=== PATIENT | female | born 1975 | race Caucasian/White ===

== ENCOUNTER → 2024-02-01 06:27 | Day surgery (SDC) | payer OTHER, SELFPAY | LOC: GI 06:27 | PROVIDERS: ATTENDING PHYSICIAN Internal Medicine Gastroenterology; FAMILY PHYSICIAN Family Medicine | DX: Z12.11 Encounter for screening for malignant neoplasm of colon (principal); K64.8 Other hemorrhoids; R12 Heartburn; R11.0 Nausea; K44.9 Diaphragmatic hernia without obstruction or gangrene; K62.1 Rectal polyp; K31.7 Polyp of stomach and duodenum | CPT/HCPCS: 45385; 43239; 88305 ==

== ENCOUNTER 2024-02-14 10:27 | Emergency (ER) | payer OTHER, SELFPAY ==
[2024-02-14 10:33] VITALS: BP 132/79
--- NOTE | 2024-02-14 11:40 | ED.GENMED ---
History of Present Illness
<Luciana Rojas PA-C - Last Filed: 02/14/24 17:59>
General
Chief Complaint: Abdominal Pain
Source: patient and records
Exam Limitations: none
Time Seen by Provider: 02/14/24 11:32
Nursing documentation reviewed up to this point in time: agreed with
Travel History
Have you had any contact with someone who has COVID-19?: No
Do you have any symptoms of coronavirus? Fever > 100 degrees, chills, cough, shortness of breath, sore throat, loss of taste or smell, muscle aches, or headache?: No
History of Present Illness
History of Present Illness:
48 y/o female with PMH of ADHD, anxiety, presenting emergency department today with diffuse abdominal pain for the past 3 days. Patient states that she feels the pain all over her abdomen but is most prominent in the pelvis. Patient had associated
hematuria which she noticed this morning. Patient states that when she does the bathroom, this morning, she would occasionally notice clots of blood and should use the bathroom. Patient denies dysuria, chest pain, shortness of breath. She does
note some flank pain associated with this. She states that her bowel movements have been regular. Her last menstrual period was January 27. Patient states her periods are normal for her. Patient has a past surgical history of D&C and ,
has no other abdominal surgical history. Patient also notes that her appetite has been decreased past few days, however she has been able to tolerate oral intake and notes some nausea but no vomiting.
Past History
<Luciana Rojas PA-C - Last Filed: 02/14/24 17:59>
Past History
ED Past Medical History: None and Other (Frequent Sinus infections, ADHD, anxiety)
ED Past Surgical History: Gynecological
Social History
Tobacco: Non-smoker
Alcohol: Other (Medical marijuana)
Personal:
Living: with family
Family History
Family History: Other (There is nearsightedness in the family)
Review of Systems
<Luciana Rojas PA-C - Last Filed: 02/14/24 17:59>
Review of Systems
All Other Systems: ROS reviewed and negative except as documented in HPI and ROS
Phy Exam
<Luciana Rojas PA-C - Last Filed: 02/14/24 17:59>
Physical Exam
Physical Exam:
Vitals: Vital signs are stable
General: Patient is well-appearing, no acute distress
Skin: Warm and dry, no rashes or lesions
Head: Normocephalic, atraumatic
Eyes: Scleral nonicteric
Cardiac: Regular rate
Pulm: Normal respiratory effort
Abdomen: Diffuse abdominal tenderness to palpation, guarding present. Adnexal tenderness present, no palpable masses. Normoactive bowel sounds.
Genitourinary: No lesions or masses seen on external genitalia. On speculum examination, vaginal mucosa pink and moist, no lesions, no active bleeding, small collections of white discharge seen.
Neuro: AAOx3.CN II-XII intact. No focal neurologic deficits.
Course
<Luciana Rojas PA-C - Last Filed: 02/14/24 17:59>
Orders/Labs/Results
Orders:
Orders
02/14/24 11:55
IV Insert/Care/Rem.- Treatment PRN
02/14/24 12:04
Test Result ONCE
02/14/24 12:14
, Urine Qualitative Screen [HCG, Urine Qualitative Screen] Urgent
Date Specimen was Collected: 02/14/24
Time Specimen was Collected: 12:14
Urinalysis Reflex To Culture Urgent
Date Specimen was Collected: 02/14/24
Time Specimen was Collected: 11:40
Urine Microscopic Reflex Cult Urgent
Urine Culture Urgent
JAVON Source: U
Specimen Description:
Obtained by: Random
Date Specimen was Collected: 02/14/24
Time Specimen was Collected: 11:40
02/14/24 12:24
Complete Blood Count/With Diff Urgent
Comprehensive Metabolic Panel Urgent
Lipase Urgent
02/14/24 12:37
Add On- LAB Urgent
Tests Added?: urine
02/14/24 12:56
CT Abd/pelvis Wo Iv Cont Urgent
Comment:
Reason For Exam: pelvic pain, flank pain, hematuria
Abnormal Lab Results
02/14/24 02/14/24
12:14 12:24
Hct 35.6 L %
(37.0-47.0)
Absolute Neuts (auto) 7.1 H 10^3/uL
(1.4-6.5)
Lymphocytes % 18.9 L %
(20.5-51.1)
Ur Occult Blood Reflex 4+ A
(Negative)
Leukocyte Esterase Rfl 1+ A
(Negative)
02/14/24 12:24
02/14/24 12:24
Vital Signs
Initial and Last Documented VS:
Initial Vital Signs
Temp Pulse Resp BP Pulse Ox
98.6 F 89 18 132/79 99
02/14/24 10:33 02/14/24 10:33 02/14/24 10:33 02/14/24 10:33 02/14/24 10:33
Last Documented Vital Signs
Temp Pulse Resp BP Pulse Ox
98.6 F 66 16 109/70 97
02/14/24 10:33 02/14/24 13:55 02/14/24 13:55 02/14/24 13:55 02/14/24 13:55
Angelalt;Bennett Stark, DO - Last Filed: 02/14/24 12:59>
Orders/Labs/Results
Orders:
Orders
02/14/24 11:55
IV Insert/Care/Rem.- Treatment PRN
02/14/24 12:04
Test Result ONCE
02/14/24 12:14
, Urine Qualitative Screen [HCG, Urine Qualitative Screen] Urgent
Date Specimen was Collected: 02/14/24
Time Specimen was Collected: 12:14
Urinalysis Reflex To Culture Urgent
Date Specimen was Collected: 02/14/24
Time Specimen was Collected: 11:40
Urine Microscopic Reflex Cult Urgent
Urine Culture Urgent
JAVON Source: U
Specimen Description:
Obtained by: Random
Date Specimen was Collected: 02/14/24
Time Specimen was Collected: 11:40
02/14/24 12:24
Complete Blood Count/With Diff Urgent
Comprehensive Metabolic Panel Urgent
Lipase Urgent
02/14/24 12:37
Add On- LAB Urgent
Tests Added?: urine
02/14/24 12:56
CT Abd/pelvis Wo Iv Cont Urgent
Comment:
Reason For Exam: pelvic pain, flank pain, hematuria
Abnormal Lab Results
02/14/24 02/14/24
12:14 12:24
Hct 35.6 L %
(37.0-47.0)
Absolute Neuts (auto) 7.1 H 10^3/uL
(1.4-6.5)
Lymphocytes % 18.9 L %
(20.5-51.1)
Ur Occult Blood Reflex 4+ A
(Negative)
Leukocyte Esterase Rfl 1+ A
(Negative)
02/14/24 12:24
02/14/24 12:24
Vital Signs
Initial and Last Documented VS:
Initial Vital Signs
Temp Pulse Resp BP Pulse Ox
98.6 F 89 18 132/79 99
02/14/24 10:33 02/14/24 10:33 02/14/24 10:33 02/14/24 10:33 02/14/24 10:33
Last Documented Vital Signs
Temp Pulse Resp BP Pulse Ox
98.6 F 66 16 109/70 97
02/14/24 10:33 02/14/24 13:55 02/14/24 13:55 02/14/24 13:55 02/14/24 13:55
<Luciana Rojas PA-C - Last Filed: 02/14/24 17:59>
MDM/Problems Addressed
Differential Diagnosis Includes:
Differentials include nephrolithiasis, acute cystitis, pyelonephritis, abnormal uterine bleeding, menstruation, , ectopic , bladder cancer
MDM/Problems Addressed:
abdominal pain
hematuria
Chronic conditions affecting care: Psychiatric illness
<Luciana Rojas PA-C - Last Filed: 02/14/24 17:59>
*Pulse Oximetry
Patient hypoxic: no
*Critical Care Note
Total Time (30-74mins, 75-104mins- exclusive of procedures): Not Applicable
Data Reviewed
Review of Other/Old Records Reveals: Records (reviewed ER physician documentation from 08/03/2023) and Discharge Summary (reviewed discharge summary from 02/07/15)
Source: patient and records
<BRENNA Estes Last Filed: 02/14/24 17:59>
Patient Management
Escalation/DeEscalation of care consider admission/obs:
48 y/o female with PMH of ADHD, anxiety, presenting emergency department today with diffuse abdominal pain for the past 3 days. Patient states that she feels the pain all over her abdomen but is most prominent in the pelvis. On physical exam, she
had diffuse abdominal tenderness however she is well-appearing. Speculum exam was performed which did not reveal any vaginal lesions or active bleeding. CT scan of the abdomen revealed lobulated contour of the uterus suggestive of uterine
fibroids. Patient was updated on these findings, advised follow-up with her DIRECTOR OF CULTURE. Patient states that she is currently process of finding a new one, I did give her referral to set up an appointment. Patient stable for discharge. Patient in
agreement with plan.
ED Attending Note
<Luciana Rojas PA-C - Last Filed: 02/14/24 17:59>
-
Portions of this chart may have been created with voice recognition software.� Occasional wrong word or��sound alike� substitutions may have occurred due to the inherent limitations of voice recognition software.
<Bennett Stark DO - Last Filed: 02/14/24 12:59>
ED Attending Note
Patient seen and examined by attending physician: Yes
I performed the substantive portion of visit, reviewed & personally made and approve the management plan that is documented in note by myself or KRYSTA.: Yes
ED Attending Note:
I have reviewed Luciana's note with the following comments.
48-year-old female presents complaining of lower abdominal pain, hematuria. Symptoms began approximately 3 days ago. When she urinated earlier today she noted clots in her urine. She feels confident this bleeding was not vaginal in nature. Last
menstrual period was January 27. Her menstrual periods have been normal. No fever or chills.
General: Awake, Alert, Oriented X3. No acute distress.
Vitals: unremarkable
Head: Atraumatic
Eyes: Pupils equal, EOMI
Abd: Soft, tender palpation bilateral lower abdominal quadrants, No pulsatile mass
Back: Mild right CVA tenderness to percussion
Neuro: Nonfocal
Skin: Warm, dry, no rash
Extremities: pulses equal b/l, no edema
Given hematuria most likely cause for patient's symptoms is kidney stone or other kidney lesion. UTI with hemorrhagic cystitis also possibility. Will obtain a CT without contrast as the initial study as well as urinalysis and some lab studies.
Discharge Plan
Departure
Patient Disposition: Home (Routine Discharge)
Date of Disposition: 02/14/24
Time of Disposition: 14:23
Patient with high blood pressure during this ER visit?: Yes
Condition: Good
Discharge Problem:
Abdominal pain
Instructions: Abdominal Pain, BLOOD PRESSURE
Prescriptions:
No Action
Theragen Tablet
1 tab PO HS
alprazolam 0.5 mg Tablet
0.25 mg PO DAILY
Patient Comments:
08/03/23 filled on 07/06/23 #15
ascorbic acid (vitamin C) [Vitamin C] 250 mg Tablet
250 mg PO HS
ibuprofen [Advil] 200 mg Tablet
200 mg PO Q6HPRN PRN (Reason: mild pain)
fluticasone propionate [Flonase] 50 mcg/actuation [place],Suspension
2 spray INTRANASAL DAILYPRN PRN (Reason: nasal allergies)
bupropion HCl 200 mg Tablet Sustained-Release 12 Hr
400 mg PO DAILY
escitalopram oxalate 5 mg Tablet
5 mg PO DAILY
calcium carbonate-vitamin D3 [Calcium 500 + D] 500 mg-10 mcg (400 unit) Tablet
1 tab PO HS
guaifenesin [Mucinex] 600 mg Tablet Extended Release 12hr
600 mg PO [id number] PRN (Reason: congestion)
Medical Marijuana
2 - 3 puff inhalation DAILYPRN PRN (Reason: anxiety)
Referrals:
Tracey Gomez DO [Family Provider] -
Prema Kurtz DO [Active] - Call in 1-3 days for appt
Activity Restrictions/Additional Instructions:
Please schedule a follow up appointment with your OBGYN.
Please follow up with your primary.
PLEASE RETURN TO THE EMERGENCY DEPARTMENT SHOULD YOU EXPERIENCE AN ACUTE WORSENING OF YOUR SYMPTOMS, FEVERS OR CHILLS, CHEST PAIN, SHORTNESS OF BREATH, PERSISTENT BLEEDING, OR OTHER CONCERNING SIGNS OR SYMPTOMS.
Interventions
Interventions:
*General Assessment Last Done: 02/14/24 11:59
ED- Fall Risk Assessment Last Done: 02/14/24 11:59
*ED COVID-19 Vaccine History Last Done: 02/14/24 10:33
*Nursing Disposition Last Done: 02/14/24 14:50
[facility]izsnft[facility] Assessment Last Done: 02/14/24 11:58
Discharge Date and Time
Discharge Date/Time: 02/14/24 14:53
Print Language: TURKISH
[2024-02-14 12:25] LABS: Urine Albumin Negative (Neg - Trace); Urine Bilirubin Negative (Negative); Urine Character Clear (Clear); Urine Color Straw; Urine Glucose Negative (Negative); Urine Ketone Negative (Negative); Urine Leukocyte 1+ (Negative); Urine Nitrite Negative (Negative); Urine Occult Blood 4+ (Negative); Urine Urobilinogen Negative (Neg - 1+)
[2024-02-14 12:45] LABS: % Basophils 0.2 % (0-2); % Eosinophils 0.7 % (0-6); % Immature Granulocytes 0.4 % (0-0.5); % Lymphocytes 18.9 % (20.5-51.1); % Monocytes 5.1 % (1.7-9.3); % Neutrophils 74.7 % (42.2-75.2); Absolute Eosinophils 0.1 10^3/uL (0-0.7); Absolute Lymphocytes 1.8 10^3/uL (1.2-3.4); Absolute Monocytes 0.5 10^3/uL (0.1-0.6); Absolute Neutrophils 7.1 10^3/uL (1.4-6.5); Hematocrit 35.6 % (37.0-47.0); Hemoglobin 12.5 g/dL (12.0-16.0); Mean Corp Hgb Conc. 35.1 g/dL (33.0-37.0); Mean Corpuscular Hgb 29.1 pg (27.0-31.0); Mean Platelet Volume 9.2 fL (7.4-10.4); Nucleated Red Blood Cells % 0 %; Platelet Count 212 10^3/uL (130-400); Red Blood Cell Count 4.29 10^6/uL (4.20-5.40); Red Cell Dist. Width 13.6 % (11.5-14.5); White Blood Cell Count 9.6 10^3/uL (4.8-10.8)
[2024-02-14 13:06] LABS: ALT (SGPT) 15 U/L (0-35); AST (SGOT) 24 U/L (14-36); Albumin 4.3 g/dl (3.5-5.0); Alkaline Phosphatase 50 U/L (38-126); Blood Urea Nitrogen 12 mg/dl (7-17); Calcium 9.3 mg/dl (8.4-10.2); Carbon Dioxide 26 mmol/L (22-30); Chloride 105 mmol/L (98-107); Glucose 90 mg/dl (70-99); Lipase 91 U/L (23-300); Potassium 3.9 mmol/L (3.5-5.1); Sodium 135 mmol/L (135-145); Total Bilirubin 0.5 mg/dl (0.2-1.3); Total Protein 6.8 g/dl (6.3-8.2); eGFR > 60.00
[2024-02-14 13:30] LABS: HCG, Urine Qualitative Screen Negative
[2024-02-14 13:41] LABS: Urine Red Blood Cell 0-2 /HPF (0-2)
[2024-02-14 13:53] VITALS: BMI 21.8
[2024-02-14 13:55] VITALS: BP 109/70
== END 2024-02-14 14:53 | disposition home or self-care (01) ==
LOC: EMR 10:27
PROVIDERS: Physician Assistant; EMERGENCY PHYSICIAN Emergency Medicine; FAMILY PHYSICIAN Family Medicine
DX: R10.84 Generalized abdominal pain (principal); F90.9 Attention-deficit hyperactivity disorder, unspecified type; F41.9 Anxiety disorder, unspecified
CPT/HCPCS: 99284; 74176; 80053; 81003; 81015; 81025; 83690; 85025; 87086

== ENCOUNTER → 2025-03-27 11:49 | Outpatient (REF) | payer OTHER, SELFPAY | LOC: RAD 11:49 | PROVIDERS: ATTENDING PHYSICIAN Family Medicine | DX: R10.13 Epigastric pain (principal); R78.9 Finding of unspecified substance, not normally found in blood; R10.9 Unspecified abdominal pain; K59.00 Constipation, unspecified | CPT/HCPCS: 74018 ==

== ENCOUNTER 2025-03-30 13:12 | Emergency (ER) | payer OTHER, SELFPAY ==
[2025-03-30 13:22] VITALS: BP 133/97
[2025-03-30 13:42] VITALS: BMI 20.9
[2025-03-30] MEDS: NSS 1000 IV (13:57)
[2025-03-30 14:00] VITALS: BP 128/67
[2025-03-30 14:12] LABS: % Basophils 0.2 % (0-2); % Eosinophils 1.1 % (0-6); % Immature Granulocytes 0.4 % (0-0.5); % Lymphocytes 24.3 % (20.5-51.1); % Monocytes 5.9 % (1.7-9.3); % Neutrophils 68.1 % (42.2-75.2); Absolute Eosinophils 0.1 10^3/uL (0-0.7); Absolute Lymphocytes 2.5 10^3/uL (1.2-3.4); Absolute Monocytes 0.6 10^3/uL (0.1-0.6); Absolute Neutrophils 7.1 10^3/uL (1.4-6.5); Hematocrit 39.7 % (37.0-47.0); Hemoglobin 13.1 g/dL (12.0-16.0); Mean Corpuscular Hgb 26.6 pg (27.0-31.0); Mean Corpuscular Volume 80.5 fL (81.0-99.0); Mean Platelet Volume 8.3 fL (7.4-10.4); Nucleated Red Blood Cells % 0 %; Platelet Count 344 10^3/uL (130-400); Red Blood Cell Count 4.93 10^6/uL (4.20-5.40); White Blood Cell Count 10.3 10^3/uL (4.8-10.8)
[2025-03-30 14:26] LABS: HCG, Serum Qualitative Screen Negative
[2025-03-30 14:28] LABS: ALT (SGPT) 20 U/L (0-35); AST (SGOT) 22 U/L (14-36); Albumin 4.3 g/dl (3.5-5.0); Alkaline Phosphatase 62 U/L (38-126); Blood Urea Nitrogen 14 mg/dl (7-17); Calcium 9.3 mg/dl (8.4-10.2); Carbon Dioxide 27 mmol/L (22-30); Chloride 107 mmol/L (98-107); Estimated Creatinine Clearance 76 ml/min; Glucose 106 mg/dl (70-99); Potassium 4.3 mmol/L (3.5-5.1); Sodium 138 mmol/L (135-145); Total Bilirubin 0.8 mg/dl (0.2-1.3); Total Protein 7.4 g/dl (6.3-8.2); eGFR > 60.00
[2025-03-30 15:30] LABS: Urine Albumin Negative (Neg - Trace); Urine Bilirubin Negative (Negative); Urine Character Clear (Clear); Urine Color Yellow; Urine Glucose Negative (Negative); Urine Ketone Negative (Negative); Urine Leukocyte 1+ (Negative); Urine Nitrite Negative (Negative); Urine Occult Blood 4+ (Negative); Urine Urobilinogen Negative (Neg - 1+); Urine pH 6.5 (5.0-9.0)
[2025-03-30 15:51] LABS: Urine Bacteria Few (Negative)
[2025-03-30] MEDS: MAGNESIUM SULFATE 50 IV (15:51)
[2025-03-30] MEDS: TORADOL 15 MG IV (15:51)
[2025-03-30] MEDS: REGLAN 10 MG IV (15:52)
--- NOTE | 2025-03-30 16:34 | ED.GENMED ---
History of Present Illness
General
Chief Complaint: Headache
Time Seen by Provider: 03/30/25 14:13
History of Present Illness
History of Present Illness:
49-year-old female presents for evaluation of severe intermittent headache over the past week. Headache comes in waves and is debilitating when it strikes. Describes a diffuse headache that also involves intermittent body pain as well. She was
seen by her primary care physician for the symptoms and initially treated with antibiotics and steroids for sinusitis, most recently diagnosed with a UTI and prescribed antibiotics but has not started these yet. She denies any lower urinary tract
voiding symptoms at this point.
Past History
Past History
ED Past Medical History: None and Other (Frequent Sinus infections, ADHD, anxiety)
ED Past Surgical History: Gynecological
Social History
Tobacco: Non-smoker
Alcohol: Other (Medical marijuana)
Personal:
Living: with family
Family History
Family History: Other (There is nearsightedness in the family)
Review of Systems
Review of Systems
Allergies reviewed?: Yes
All Other Systems: ROS reviewed and negative except as documented in HPI and ROS
Phy Exam
Physical Exam
Physical Exam:
GEN: Well appearing, NAD, WDWN
HEENT: Oral mucosa moist, no scleral icterus, no nasal congestion
Cardiac: Regular rate
Lung: No respiratory distress, no tachypnea
MSK: No gross deformity or injuries
Skin: Good color, no pallor or jaundice, no rashes
Neuro: AO x3; CN II-XII grossly intact. BUE strength 5/5 in all kaye, sensation intact and symmetric. BLE strength 5/5 in all kaye, sensation intact and symmetric
Psych: Calm, cooperative
Course
Orders/Labs/Results
Orders:
Orders
03/30/25 13:55
Test Result ONCE
03/30/25 13:59
CMP [Comprehensive Metabolic Panel] Stat
Complete Blood Count/With Diff Urgent
HCG, Serum Qualitative Screen Urgent
Comment: Notify provider if positive test present
Urinalysis Reflex To Culture Urgent
Date Specimen was Collected: 03/30/25
Time Specimen was Collected: 13:55
Urine Microscopic Reflex Cult Urgent
Urine Culture Urgent
JAVON Source: U
Specimen Description:
Obtained by: Random
Date Specimen was Collected: 03/30/25
Time Specimen was Collected: 13:55
03/30/25 14:00
0.9% Sodium Chloride 1000 ml [Nss] 1,000 ml IV Wide Open mls/hr
03/30/25 14:47
CT Head W/o Iv Contrast Urgent
Comment:
Reason For Exam: intractable headache
Ketorolac [Toradol] 15 mg IV NOW STA
Magnesium Sulfate 2 Gram/50 ml [Magnesium Sulfate] 2 gram in 50 ml IV NOW
Metoclopramide [Reglan] 10 mg IV NOW STA
Abnormal Lab Results
03/30/25
13:59
MCV 80.5 L fL
(81.0-99.0)
MCH 26.6 L pg
(27.0-31.0)
Absolute Neuts (auto) 7.1 H 10^3/uL
(1.4-6.5)
Glucose 106 H mg/dl
(70-99)
Ur Occult Blood Reflex 4+ A
(Negative)
Leukocyte Esterase Rfl 1+ A
(Negative)
Urine RBC 3-6 A /HPF
(0-2)
Urine Bacteria (Reflex) Few A
(Negative)
03/30/25 13:59
03/30/25 13:59
Vital Signs
Initial and Last Documented VS:
Initial Vital Signs
Temp Pulse Resp BP Pulse Ox
98.7 F 90 18 133/97 99
03/30/25 13:22 03/30/25 13:22 03/30/25 13:22 03/30/25 13:22 03/30/25 13:22
Last Documented Vital Signs
Temp Pulse Resp BP Pulse Ox
98.7 F 79 16 128/67 99
03/30/25 13:22 03/30/25 14:00 03/30/25 14:00 03/30/25 14:00 03/30/25 14:00
MDM/Problems Addressed
MDM/Problems Addressed:
CT of the head was obtained due to prolonged course of headache despite normal neurologic exam, this was reassuring. Certainly could be correlating with her non-acute sinusitis. Prescribed Fioricet for abortive relief should headache recur,
recommend primary care follow-up, at this time I see no indication for her to initiate antibiotic therapy
*Critical Care Note
Total Time (30-74mins, 75-104mins- exclusive of procedures): Not Applicable
ED Attending Note
-
Portions of this chart may have been created with voice recognition software.� Occasional wrong word or��sound alike� substitutions may have occurred due to the inherent limitations of voice recognition software.
Discharge Plan
Departure
Patient Disposition: Home (Routine Discharge)
Date of Disposition: 03/30/25
Time of Disposition: 16:36
Patient with high blood pressure during this ER visit?: No
Discharge Problem:
Intractable episodic headache
Instructions: Headache, Adult (DC)
Prescriptions:
New
zwnrzqldio-kjupejuuiqywm-fvax [Fioricet] 50-300-40 mg capsule
1 cap PO TID PRN (Reason: Pain) Qty: 10 0RF
No Action
Theragen Tablet
1 tab PO HS
alprazolam 0.5 mg Tablet
0.25 mg PO DAILY
Patient Comments:
08/03/23 filled on 07/06/23 #15
ascorbic acid (vitamin C) [Vitamin C] 250 mg Tablet
250 mg PO HS
ibuprofen [Advil] 200 mg Tablet
200 mg PO Q6HPRN PRN (Reason: mild pain)
fluticasone propionate [Flonase] 50 mcg/actuation [place],Suspension
2 spray INTRANASAL DAILYPRN PRN (Reason: nasal allergies)
bupropion HCl 200 mg Tablet Sustained-Release 12 Hr
400 mg PO DAILY
escitalopram oxalate 5 mg Tablet
5 mg PO DAILY
calcium carbonate-vitamin D3 [Calcium 500 + D] 500 mg-10 mcg (400 unit) Tablet
1 tab PO HS
guaifenesin [Mucinex] 600 mg Tablet Extended Release 12hr
600 mg PO [id number] PRN (Reason: congestion)
Medical Marijuana
2 - 3 puff inhalation DAILYPRN PRN (Reason: anxiety)
Referrals:
Tracey Gomez DO [Family Provider, Family Practice]
Interventions
Interventions:
*Risk Screen - Suicide Last Done: 03/30/25 13:22
*General Assessment Last Done: 03/30/25 13:22
*Neglect/Abuse Screening Last Done: 03/30/25 13:22
*ED- Fall Risk Assessment Last Done: 03/30/25 13:41
*Nursing Disposition Last Done: 03/30/25 17:21
ED- Neurological Assessment Last Done: 03/30/25 13:41
Discharge Date and Time
Discharge Date/Time: 03/30/25 17:21
Print Language: KHMER
== END 2025-03-30 17:21 | disposition home or self-care (01) ==
LOC: EMR 13:12
PROVIDERS: Student in an Organized Health Care Education/Training Program; EMERGENCY PHYSICIAN Student in an Organized Health Care Education/Training Program; FAMILY PHYSICIAN Family Medicine
DX: R51.9 Headache, unspecified (principal); J32.8 Other chronic sinusitis
CPT/HCPCS: 96365; 96375; 96361; 99284; 70450; 80053; 81003; 81015; 84703; 85025; 87086